=== PATIENT | female | born 1970 | race Caucasian/White ===

== ENCOUNTER → 2019-11-28 16:00 | Outpatient (BNVA) | payer MEDICARE, MEDICAID, SELFPAY | PROVIDERS: Family Provider Nurse Practitioner Family; PCP Nurse Practitioner Family; Visit Provider Nurse Practitioner Family | DX: G40.909 Epilepsy, unspecified, not intractable, without status epilepticus (principal); Z13.6 Encounter for screening for cardiovascular disorders; E03.9 Hypothyroidism, unspecified; L21.9 Seborrheic dermatitis, unspecified; F41.9 Anxiety disorder, unspecified; F32.9 Major depressive disorder, single episode, unspecified; M25.561 Pain in right knee; M25.562 Pain in left knee | CPT/HCPCS: 80053; 80061; 80185; 84443; 85025 ==

== ENCOUNTER 2019-12-30 00:02 | Emergency (ER) | payer MEDICARE, MEDICAID, SELFPAY ==
[2019-12-30 00:10] VITALS: BP 148/77; PULSE 83; RESP 16; TEMP 36.7; O2SAT 96; BMI 23.3
--- NOTE | 2019-12-30 00:39 | ED_ITS ---
HPI - Wound/Laceration General: Chief Complaint: Wound/Laceration Stated Complaint: finger lac Time Seen by Provider: 12/30/19 00:39 History of Present Illness: HPI narrative: Patient is a 49-year-old female comes to the ED with a laceration on left index finger. Injury occurred just prior to arrival. Patient was cutting some dog treats with a knife and it slipped and cut her right index finger. While at home they applied pressure on laceration with paper towels to get it to stop bleeding. Patient says she is on sure of her last tetanus shot. Associated symptoms: Denies chills, fever(s), nausea or vomiting Review of Systems Const: Denies: fever(s), chills or fatigue Eyes: Denies: change in vision or eye discomfort ENMT: Denies: throat pain, odynophagia, nasal discharge or nasal congestion Card: Denies: chest pain, palpitations, edema, swelling of feet/ankles, dyspnea on exertion or orthopnea Resp: Denies: dyspnea, productive cough or non-productive cough GI: Denies: abdominal pain, nausea, vomiting, diarrhea, constipation or hematochezia : Denies: flank pain, dysuria or hematuria Musc: Denies: neck pain, back pain or extremity swelling Skin/Breast: Reports: new lesions (laceration to left index finger); Denies: rash Neuro: Denies: headache(s), numbness in extremities or weakness in extremities [facility] ED PFSH: Medical History Anxiety and depression Graves disease Hypothyroidism, unspecified Seizure disorder Family History Mother Cancer COLON CANCER Social History Smoking and tobacco status: former smoker Alcohol intake: former Lives independently: Yes Household members: significant other Housing: House Current occupational status: disabled Female Reproductive History: Date of last menstrual period: 12/27/19 Physical Exam Const: COMMON NORMALS: no acute distress, patient oriented x3 and alert GENERAL APPEARANCE: cooperative and comfortable HENMT: COMMON NORMALS: normocephalic HEAD & SCALP: normocephalic MOUTH: Normal oral and palatal mucosa present THROAT: posterior oropharynx normal and uvula midline Eye: COMMON NORMALS: Equal, round and reactive pupils present PUPIL: Yes Equal, round and reactive pupils present Neck/C-Spine: COMMON NORMALS: supple GENERAL: Yes normal visual inspection Resp: COMMON NORMALS: normal respiratory effort, No retractions, No use of accessory muscles and clear to auscultation bilaterally AUSCULTATION: clear to auscultation bilaterally Cardio: COMMON NORMALS: regular rate, regular rhythm, S1 normal heart sound present, S2 normal heart sound present, No gallops present (Cardio), No clicks present (Cardio), No murmurs present (Cardio) and Peripheral pulses 2+ throughout RATE: regular rate RHYTHM: regular rhythm HEART SOUNDS: S1 normal heart sound present and S2 normal heart sound present PERIPHERAL PULSES: Peripheral pulses 2+ throughout GI: COMMON NORMALS: Normal to inspection, nondistended, normoactive bowel sounds present, Soft to palpation, non-tender and no masses PALPATION: Yes Soft to palpation : COMMON NORMALS: Yes no CVA tenderness BLADDER/KIDNEY EXAM: Yes no CVA tenderness Back/Pelvis: COMMON NORMALS: no CVA tenderness Extremity: GENERAL: Yes normal exam except as noted LEFT UPPER EXTREMITY: Yes hand & digits Left hand and digits: Yes inspection (0.5cm superficial laceration to index finger dorsal side. No nail damage seen.), Yes ROM (full) and Yes neurovascular exam (Intact.) Neuro: COMMON NORMALS: patient oriented x3 and moves all extremities SENSORIUM/ORIENTATION: Yes alert Skin: TRAUMA: laceration (0.5 cm superficial linear laceration to left index finger-dorsal side.) linear, superficial, motor nerve function intact and sensation intact; not actively bleeding, no pulsatile bleeding and not contaminated Procedures Laceration Laceration 1: Site: hand Side (If applicable): left Size (cm): 0.5 Description: linear and clean Depth: simple, single layer Pre-repair: irrigated extensively (With normal saline and then cleaned with alcohol swab.) Skin layer closed with: other (Dermabond) Size (cm): other (dermabond) Technique: other (Dermabond) Course Vital Signs: Vital signs: Vital Signs Temperature 98.1 F 12/30/19 00:10 Pulse Rate 83 12/30/19 00:10 Respiratory Rate 16 12/30/19 00:10 Blood Pressure 148/77 12/30/19 00:10 Pulse Oximetry 96 12/30/19 00:10 MDM - Wound/Laceration MDM Narrative: Medical decision making narrative: Patient is a 49-year-old female comes to the ED with a laceration to her left index finger. Laceration was irrigated with normal saline and cleaned with alcohol swab. Laceration was then closed using Dermabond and then a bandage was applied by the nurse. Patient was given a dose of cephalexin and tetanus shot. She was told to keep wound clean and dry for the next 24 hours and then after that she can clean and re-bandage daily. Patient was given a prescription for cephalexin as prophylactic treatment. She was told to watch for signs of infection such as redness, warmth or puslike drainage. She was told to follow-up with PCP in 7 to 10 days for reevaluation. Patient understood and agreed with plan. Discharge Plan Discharge Patient Disposition: Home, Self-Care Clinical Impression: Laceration Condition: Stable Prescriptions: New cephalexin 500 mg capsule 500 mg PO QID 3 Days Qty: 12 RF: 0 No Action Women's 50 Plus Multivitamin 400 mcg-500 mg calcium-20 mcg tablet PO RF: 0 ketoconazole 2 % shampoo 1 applic TOPICAL ONCE Qty: 120 RF: 1 paroxetine HCl [Paxil] 30 mg tablet 30 mg PO QAM Qty: 90 RF: 1 phenytoin sodium extended 100 mg capsule 200 mg PO BID 30 Days Qty: 120 RF: 1 meloxicam 15 mg tablet 15 mg PO DAILY Qty: 30 RF: 2 Discharge Orders: Discharge Order (Routine); Ordered 12/30/19 Ordered By: Robert Johnson Referrals: Emiliana Ruano FNP [Primary Care Provider] - Discharge Diet: Regular Discharge Activity: Resume usual activity Patient Instructions: Laceration (ED), Skin Adhesive Care (ED) Activity Restrictions/Additional Instructions: Take full course of antibiotics as prescribed. Leave laceration dry for the next 24 hours. After that you can clean and re-bandage laceration daily. You received a tetanus shot today so you are good for another 8 to 10 years. Follow-up with your primary care doctor in 7 to 10 days for reevaluation. Watch for signs of infection such as redness, warmth or puslike drainage from finger. If you see these possible signs of infection return to the ED for reevaluation. Coding Level of Care Code ED [employer] Repairer for Chg Fwd Exam Comprehensive
[2019-12-30] MEDS: tetanus-dipt-pertussis 0.5 mL SDV IM (01:00)
[2019-12-30] MEDS: cephALEXin 500 mg Capsule PO (01:00)
[2019-12-30 01:26] VITALS: BP 112/85; PULSE 71; RESP 16; O2SAT 95
== END 2019-12-30 01:36 | disposition home or self-care (01) ==
PROVIDERS: Emergency Provider Physician Assistant; PCP Nurse Practitioner Family
DX: S61.211A Laceration without foreign body of left index finger without damage to nail, initial encounter (principal); W26.0XXA Contact with knife, initial encounter; Z87.891 Personal history of nicotine dependence; Z23 Encounter for immunization
CPT/HCPCS: 12001; 12345; 90471; 90715; 99281; 99283

== ENCOUNTER → 2020-04-03 11:34 | Outpatient (BNVA) | payer MEDICARE, MEDICAID, SELFPAY | PROVIDERS: PCP Nurse Practitioner Family; Visit Provider Nurse Practitioner Family | DX: G40.909 Epilepsy, unspecified, not intractable, without status epilepticus (principal); F32.9 Major depressive disorder, single episode, unspecified; F41.9 Anxiety disorder, unspecified; E03.9 Hypothyroidism, unspecified; L21.9 Seborrheic dermatitis, unspecified; N63.0 Unspecified lump in unspecified breast | CPT/HCPCS: 80053; 80185; 84443; 85025 ==

== ENCOUNTER 2020-04-09 11:33 | Outpatient (CLI) | payer MEDICARE, MEDICAID, SELFPAY ==
--- NOTE | 2020-04-09 12:00 | MM_ITS ---
WS: [id number] RIGHT DIAGNOSTIC MAMMOGRAM WITH MAXINE DISPLACEMENT VIEWS. CAD PERFORMED. HISTORY: breast lump; right breast COMPARISON: 07/09/2019, 07/07/2018 RIGHT craniocaudal and mediolateral like views are performed. Spot compression RIGHT CC and mediolate ral. Maxine displacement views in CC and MLO projection also performed. Breast composition: The breasts are heterogeneously dense, which may obscure small masses. Breast im plants are retropectoral and intact. Small amount of calcium adjacent to the RIGHT breast implant. Pa lpable marker is placed inferior to the nipple. No underlying mass identified. No nipple retraction. RIGHT breast ultrasound, limited. Ultrasound is directed to the palpable area 6:00. There is normal underlying fibroglandular breast ti ssue. No soft tissue thickening. No mass. MM/[place] [id number] IMPRESSION: BI-RADS: 2-Benign FOLLOW-UP: See Report Return to annual screening. Screening mammogram should be performed in June 2020.
--- NOTE | 2020-04-09 12:45 | US_ITS ---
WS: [id number] RIGHT DIAGNOSTIC MAMMOGRAM WITH MAXINE DISPLACEMENT VIEWS. CAD PERFORMED. HISTORY: breast lump; right breast COMPARISON: 07/09/2019, 07/07/2018 RIGHT craniocaudal and mediolateral like views are performed. Spot compression RIGHT CC and mediolate ral. Maxine displacement views in CC and MLO projection also performed. Breast composition: The breasts are heterogeneously dense, which may obscure small masses. Breast im plants are retropectoral and intact. Small amount of calcium adjacent to the RIGHT breast implant. Pa lpable marker is placed inferior to the nipple. No underlying mass identified. No nipple retraction. RIGHT breast ultrasound, limited. Ultrasound is directed to the palpable area 6:00. There is normal underlying fibroglandular breast ti ssue. No soft tissue thickening. No mass. US/US breast RT limited* [id number] IMPRESSION: BI-RADS: 2-Benign FOLLOW-UP: See Report Return to annual screening. Screening mammogram should be performed in June 2020.
== END 2020-04-09 11:34 | disposition home or self-care (01) ==
LOC: RADSHAW 11:50
PROVIDERS: PCP Nurse Practitioner Family; Visit Provider Nurse Practitioner Family
DX: N63.15 Unspecified lump in the right breast, overlapping quadrants (principal)
CPT/HCPCS: 76642; 77065

== ENCOUNTER → 2020-04-23 11:30 | Outpatient (BNVA) | payer MEDICARE, MEDICAID, SELFPAY | PROVIDERS: PCP Nurse Practitioner Family; Visit Provider Nurse Practitioner Family | DX: G40.909 Epilepsy, unspecified, not intractable, without status epilepticus (principal) | CPT/HCPCS: 80185 ==

== ENCOUNTER 2020-07-10 09:41 | Outpatient (CLI) | payer MEDICARE, MEDICAID, SELFPAY ==
--- NOTE | 2020-07-10 10:30 | MM_ITS ---
WS: [id number] Bilateral screening digital mammogram, 07/10/2020 Clinical Data: screening mammo; due in june Comparison: 04/09/2020, 07/09/2019, 07/07/2018, 05/06/2016, 12/04/2014, 12/03/2013, 09/12/2012, 2, 02/05/2011. Findings: The breast parenchymal pattern shows heterogeneous density. No spiculated masses or clustered calcifi cations are seen. There are no secondary signs of carcinoma. The augmentation mammoplasty implants ar e intact. MM/[place] [id number] Impression: 1. Negative bilateral mammograms with intact augmentation mammogram last impla nts unchanged 2. Recommend annual screening mammograms. BIRADS: 2-Benign FOLLOW UP: 1 Year Follow-up The CAD swatch checker was used.
== END 2020-07-10 09:42 | disposition home or self-care (01) ==
LOC: RADSHAW 09:45
PROVIDERS: PCP Nurse Practitioner Family; Visit Provider Nurse Practitioner Family
DX: Z12.31 Encounter for screening mammogram for malignant neoplasm of breast (principal)
CPT/HCPCS: 77067

== ENCOUNTER → 2020-09-30 15:15 | Outpatient (BNVA) | payer MEDICARE, MEDICAID, SELFPAY | PROVIDERS: PCP Nurse Practitioner Family; Visit Provider Nurse Practitioner Family | DX: G40.909 Epilepsy, unspecified, not intractable, without status epilepticus (principal); E03.9 Hypothyroidism, unspecified; Z13.6 Encounter for screening for cardiovascular disorders; M54.30 Sciatica, unspecified side | CPT/HCPCS: 80053; 80061; 80185; 84443; 85025 ==

== ENCOUNTER → 2020-10-14 14:38 | Outpatient (BNVA) | payer MEDICARE, MEDICAID, SELFPAY | PROVIDERS: PCP Nurse Practitioner Family; Visit Provider Family Medicine | DX: M54.31 Sciatica, right side (principal) | CPT/HCPCS: 72100; 73502 ==

== ENCOUNTER → 2020-11-10 09:48 | Outpatient (BNVA) | payer MEDICARE, MEDICAID, SELFPAY | PROVIDERS: PCP Nurse Practitioner Family; Referring Provider Nurse Practitioner Family; Visit Provider Specialist | DX: M25.552 Pain in left hip (principal) | CPT/HCPCS: 73502 ==

== ENCOUNTER → 2021-02-13 15:20 | Outpatient (BNVA) | payer MEDICARE, MEDICAID, SELFPAY | PROVIDERS: PCP Nurse Practitioner Family; Visit Provider Internal Medicine | DX: Z11.52 Encounter for screening for COVID-19 (principal); Z20.822 Contact with and (suspected) exposure to COVID-19 | CPT/HCPCS: 87635 ==

== ENCOUNTER 2021-02-20 07:45 | Day surgery (SDC) | payer MEDICARE, MEDICAID, SELFPAY ==
[2021-02-17 09:25] VITALS: BMI 22.3
[2021-02-20 08:08] VITALS: BP 123/78; PULSE 101; RESP 18; TEMP 36.7; O2SAT 98
[2021-02-20] MEDS: sodium chloride 0.9% 1,000 ML 30 ML IV (08:20)
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
[2021-02-20 08:22] LABS: OR HCG Qualitative Urine Negative (Negative)
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
[2021-02-20 09:26] VITALS: BP 104/72; PULSE 84; RESP 16; TEMP 36.1; O2SAT 99
[2021-02-20 09:46] VITALS: BP 133/83; PULSE 68; RESP 18; O2SAT 100
--- NOTE | 2021-02-20 11:40 | ANE.PACU2 ---
Inpatient post-anesthesia follow up: Airway intact: Yes Vital signs: Temperature 97 F Pulse Rate 68 Respiratory Rate 18 Blood Pressure 133/83 Pulse Oximetry 100 Oxygen Delivery Me thod Room Air Oxygen Flow Rate Fraction of Inspir ed Oxygen Hydration adequate: Yes Nausea and vomiting: No Pain level: 1 Mental status: Baseline
== END 2021-02-20 09:57 | disposition home or self-care (01) ==
PROVIDERS: Anesthesiology; PCP Nurse Practitioner Family; Visit Provider Internal Medicine
PROC: 0DJD8ZZ Inspection of Lower Intestinal Tract, Via Natural or Artificial Opening Endoscopic (ICD-10-PCS; CPT 45330; principal; 2021-02-20 09:00)
DX: Z12.11 Encounter for screening for malignant neoplasm of colon (principal); Z80.0 Family history of malignant neoplasm of digestive organs; E03.9 Hypothyroidism, unspecified; Z87.891 Personal history of nicotine dependence; Z91.19 Patient's noncompliance with other medical treatment and regimen
CPT/HCPCS: 45330; 81025; 84703; 96360; J2405; J2704; J7030

== ENCOUNTER → 2021-03-04 10:55 | Outpatient (BNVA) | payer MEDICARE, MEDICAID, SELFPAY | PROVIDERS: PCP Nurse Practitioner Family; Visit Provider Internal Medicine | DX: Z11.52 Encounter for screening for COVID-19 (principal) | CPT/HCPCS: 87635 ==

== ENCOUNTER 2021-03-09 08:51 | Day surgery (SDC) | payer MEDICARE, MEDICAID, SELFPAY ==
[2021-03-06 13:17] VITALS: BMI 23.0
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
[2021-03-09 09:43] VITALS: BP 139/86; PULSE 86; RESP 16; TEMP 36.6; O2SAT 99
[2021-03-09] MEDS: sodium chloride 0.9% 1,000 ML 30 ML IV (10:00)
[2021-03-09 11:28] VITALS: BP 111/77; PULSE 85; RESP 16; TEMP 36.6; O2SAT 98
[2021-03-09 11:42] VITALS: BP 129/83; PULSE 81; RESP 16; O2SAT 100
[2021-03-09] MEDS: ondansetron 2 mg/ML SDV 2 mL 4 MG IVP (11:53)
--- NOTE | 2021-03-09 15:10 | ANE.PACU2 ---
Inpatient post-anesthesia follow up: Airway intact: Yes Vital signs: Temperature 97.8 F Pulse Rate 81 Respiratory Rate 16 Blood Pressure 129/83 Pulse Oximetry 100 Oxygen Delivery Me thod Room Air Oxygen Flow Rate Fraction of Inspir ed Oxygen Hydration adequate: Yes Nausea and vomiting: No Pain level: 1 Mental status: Baseline
== END 2021-03-09 12:17 | disposition home or self-care (01) ==
PROVIDERS: PCP Nurse Practitioner Family; Visit Provider Internal Medicine
PROC: 0DJD8ZZ Inspection of Lower Intestinal Tract, Via Natural or Artificial Opening Endoscopic (ICD-10-PCS; CPT 45378; principal; 2021-03-09 10:30)
DX: Z12.11 Encounter for screening for malignant neoplasm of colon (principal); F41.9 Anxiety disorder, unspecified; F32.9 Major depressive disorder, single episode, unspecified; Z80.0 Family history of malignant neoplasm of digestive organs; Z87.891 Personal history of nicotine dependence
CPT/HCPCS: 96361; 96374; G0121; J2405; J7030

== ENCOUNTER → 2021-03-09 09:45 | Day surgery (SDC) | payer MEDICARE, MEDICAID, SELFPAY | PROVIDERS: PCP Nurse Practitioner Family; Visit Provider Internal Medicine | DX: Z01.818 Encounter for other preprocedural examination (principal) | CPT/HCPCS: J2704 ==

== ENCOUNTER → 2021-04-07 12:00 | Outpatient (BNVA) | payer MEDICARE, MEDICAID, SELFPAY | PROVIDERS: PCP Nurse Practitioner Family; Visit Provider Nurse Practitioner Family | DX: K59.00 Constipation, unspecified (principal) | CPT/HCPCS: 80053; 85025 ==

== ENCOUNTER → 2021-06-09 11:44 | Outpatient (BNVA) | payer MEDICARE, MEDICAID, SELFPAY | PROVIDERS: PCP Nurse Practitioner Family; Visit Provider Nurse Practitioner Family | DX: Z13.6 Encounter for screening for cardiovascular disorders (principal); E03.9 Hypothyroidism, unspecified; G40.909 Epilepsy, unspecified, not intractable, without status epilepticus | CPT/HCPCS: 80053; 80061; 80185; 84443; 85025 ==

== ENCOUNTER → 2021-11-20 15:00 | Outpatient (BNVA) | payer MEDICARE, MEDICAID, SELFPAY | PROVIDERS: PCP Nurse Practitioner Family; Visit Provider Nurse Practitioner Family | DX: G40.909 Epilepsy, unspecified, not intractable, without status epilepticus (principal); E03.9 Hypothyroidism, unspecified; Z13.6 Encounter for screening for cardiovascular disorders | CPT/HCPCS: 80053; 80061; 80185; 84439; 84443; 85025 ==

== ENCOUNTER → 2022-03-18 14:00 | Outpatient (BNVA) | payer MEDICARE, MEDICAID, SELFPAY | PROVIDERS: PCP Nurse Practitioner Family; Visit Provider Nurse Practitioner Family | DX: M25.551 Pain in right hip (principal); F41.9 Anxiety disorder, unspecified; F32.9 Major depressive disorder, single episode, unspecified; G40.909 Epilepsy, unspecified, not intractable, without status epilepticus; K59.00 Constipation, unspecified; K21.9 Gastro-esophageal reflux disease without esophagitis; Z13.6 Encounter for screening for cardiovascular disorders; E03.9 Hypothyroidism, unspecified | CPT/HCPCS: 80053; 80061; 80185; 84439; 84443; 85025 ==

== ENCOUNTER 2022-04-21 20:10 | Emergency (ER) | payer MEDICARE, MEDICAID, SELFPAY ==
[2022-04-21 20:13] VITALS: BMI 24.7
[2022-04-21 20:17] VITALS: BP 128/87; PULSE 99; RESP 16; TEMP 36.5; O2SAT 97
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
[2022-04-22] MEDS: lactated ringers 1,000 ML 999 ML IV (00:17)
[2022-04-22] MEDS: haloperidol inj 5 mg/mL INJ 1 mL IVP (00:18)
[2022-04-22 00:22] LABS: Basophils % 0.2 %; Eosinophils % 0.2 %; Hematocrit 43.6 % (37.0-47.0); Hemoglobin 14.4 g/dL (11.5-15.3); Lymphocytes # 0.2 10^3/uL (0.8-4.8); Lymphocytes % 4.3 %; Mean Corpuscular Hemoglobin 31.8 pg (28.0-34.0); Mean Corpuscular Volume 96.2 fl (81-99); Mean Platelet Volume 9.9 fL (7.4-10.4); Monocytes # 0.3 10^3/uL (0.2-0.9); Neutrophils # 4.05 10^3/uL (1.8-7.7); Neutrophils % 88.1 %; Nucleated Red Blood Cells % 0 %; Platelet Count 224 10^3/cmm (130-400); Positive C 1; Red Blood Count 4.53 10^6/uL (4.1-5.3); White Blood Count 4.6 10^3/uL (4.0-10.0)
[2022-04-22 00:45] LABS: Alanine Aminotransferase 39 U/L (0-33); Albumin Level 4.3 g/dL (3.5-5.2); Alkaline Phosphatase 145 U/L (35-105); Blood Urea Nitrogen 13 mg/dL (6-20); Calcium 9.2 mg/dL (8.5-10.5); Carbon Dioxide 27 mmol/L (22-29); Chloride 103 mmol/L (98-107); Globulin 2.7 g/dL (1.3-4.6); Glomerular Filtration Rate 129.1 mL/min (90-130); Glucose 117 mg/dL (65-115); Lipase 10 U/L (13-60); Osmolality Calculated 293 mOsm/kg (285-295); Sodium 141 mmol/L (136-145); Total Bilirubin 0.2 mg/dL (0.15-1.2)
[2022-04-22 00:47] LABS: Anion Gap 14.5 (5-19); Aspartate Amino Transferase 37 U/L (0-32); Potassium 3.5 mmol/L (3.5-5.1)
[2022-04-22 00:58] LABS: Slide Review Slide Review Perform
[2022-04-22 01:50] VITALS: BP 126/82; PULSE 93; RESP 17; O2SAT 92
== END 2022-04-22 01:18 | disposition home or self-care (01) ==
PROVIDERS: Emergency Provider Nurse Practitioner Family; PCP Nurse Practitioner Family
DX: R11.2 Nausea with vomiting, unspecified (principal); Z87.891 Personal history of nicotine dependence
CPT/HCPCS: 80053; 83690; 85025; 96361; 96374; 99284; J1630

== ENCOUNTER 2022-05-13 06:54 | Outpatient (CLI) | payer MEDICARE, MEDICAID, SELFPAY ==
--- NOTE | 2022-05-13 07:00 | CT_ITS ---
WS: [id number] CT LUMBAR SPINE TECHNIQUE: Noncontrast CT of the lumbar spine with coronal and sagittal reformatted images. CLINICAL INFORMATION: M54.50 - Low back pain, unspecified COMPARISON: Radiograph October 14, 2020. DLP: 2387.[address] scans at [facility] use at least one of these dose optimization techniques: automated e xposure control; mA and/or kV adjustment per patient size (includes targeted exams where dose is matc hed to clinical indication); or iterative reconstruction. FINDINGS: Mild lumbar curve. No acute compression. Disc bulging worse at L3-L5. No acute compression fractures. Prior postoperative changes screw fixation both ilium. L1-L2: Normal. L2-L3: Mild annular bulging. Narrowing of the LEFT subarticular recess. Moderate facet arthropathy. M ild LEFT foraminal narrowing. L3-L4: Mild annular bulging. Mild central canal stenosis. Advanced facet arthropathy worse on the LEF T. Mild to moderate LEFT foraminal narrowing. RIGHT foramen is patent. L4-L5: Mild disc bulging with moderate central canal stenosis. Advanced facet arthropathy with ligame ntum flavum hypertrophy. Mild to moderate LEFT foraminal narrowing. RIGHT foramen is patent. L5-S1: Mild disc bulging with slight effacement of ventral thecal sac. Mild to moderate LEFT L5-S1 fo raminal narrowing. RIGHT foramen is patent. Visualized pelvic bony structures: Normal. Paravertebral soft tissues: Normal. Cholecystectomy clips. Adrenal glands are normal. CT/CT lumbar spine wo con* [id number] IMPRESSION: 1. Mild lumbar curve. No acute compression. 2. Moderate central canal stenosis L4-L5 due to disc bulging with facet arthro marily and ligamentum flavum hypertrophy. Mild central canal stenosis L3-L4. 3. Mild to moderate LEFT L3-L4, LEFT L4-L5 and LEFT L5-S1 foraminal narrowing. 4. Advanced facet arthropathy L3-L4 L4-L5 and L5-S1.
--- NOTE | 2022-05-13 07:30 | CT_ITS ---
WS: [id number] CT LEFT HIP, NONCONTRAST. HISTORY: M25.552 - Pain in left hip Technique: All CT scans at [facility] use at least one of these dose optimization techniques: automated exposure control; mA and/or kV adjustment per patient size (includes targeted exams where dose is matched to clinical indication); or iterative reconstruction. DLP: 2387.70 mGy.cm COMPARISON: Radiographs 11/10/2020 Very minimal narrowing of the hip joint with mild osteophytic acetabular ridging. Small subchondral c yst along the lateral femoral head and neck junction. No fractures or dislocation. No loose body in t he joint space. No soft tissue or muscle atrophy. Acetabular orthopedic plate fixation. Visualized soft tissues of the pelvis are negative. No mass identified on this limited visualization. Remote healed fracture LEFT inferior pubic rami. CT/CT hip LT wo con* [id number] IMPRESSION: 1. Very mild degenerative joint space narrowing of the LEFT hip. No fractures or significant degenerative disease. 2. Prior plate fixation LEFT acetabulum. 3. Remote fracture with healing LEFT inferior pubic rami.
== END 2022-05-13 06:55 | disposition home or self-care (01) ==
LOC: RAD 06:54
PROVIDERS: PCP Nurse Practitioner Family; Visit Provider Nurse Practitioner Family
DX: M25.552 Pain in left hip (principal); S32.502D Unspecified fracture of left pubis, subsequent encounter for fracture with routine healing; X58.XXXD Exposure to other specified factors, subsequent encounter; M48.061 Spinal stenosis, lumbar region without neurogenic claudication; M47.816 Spondylosis without myelopathy or radiculopathy, lumbar region; M47.817 Spondylosis without myelopathy or radiculopathy, lumbosacral region
CPT/HCPCS: 72131; 73700

== ENCOUNTER → 2022-06-29 09:54 | Outpatient (BNVA) | payer MEDICARE, MEDICAID, SELFPAY | PROVIDERS: PCP Nurse Practitioner Family; Referring Provider Nurse Practitioner Family; Visit Provider Anesthesiology Pain Medicine | DX: M47.816 Spondylosis without myelopathy or radiculopathy, lumbar region (principal); M51.16 Intervertebral disc disorders with radiculopathy, lumbar region; M79.604 Pain in right leg; M79.605 Pain in left leg | CPT/HCPCS: 99204 ==

== ENCOUNTER → 2022-09-08 14:19 | Outpatient (BNVA) | payer MEDICARE, MEDICAID, SELFPAY | PROVIDERS: PCP Nurse Practitioner Family; Visit Provider Anesthesiology Pain Medicine | DX: M54.16 Radiculopathy, lumbar region (principal) | CPT/HCPCS: 62323; J1040; J3490 ==

== ENCOUNTER → 2022-09-23 10:29 | Outpatient (BNVA) | payer MEDICARE, MEDICAID, SELFPAY | PROVIDERS: PCP Nurse Practitioner Family; Visit Provider Anesthesiology Pain Medicine | DX: M47.816 Spondylosis without myelopathy or radiculopathy, lumbar region (principal); M51.16 Intervertebral disc disorders with radiculopathy, lumbar region | CPT/HCPCS: 99214 ==

== ENCOUNTER → 2022-10-06 10:49 | Outpatient (BNVA) | payer MEDICARE, MEDICAID, SELFPAY | PROVIDERS: PCP Nurse Practitioner Family; Visit Provider Nurse Practitioner Family | DX: E03.9 Hypothyroidism, unspecified (principal); F32.9 Major depressive disorder, single episode, unspecified; F41.9 Anxiety disorder, unspecified; G40.909 Epilepsy, unspecified, not intractable, without status epilepticus; Z13.6 Encounter for screening for cardiovascular disorders; K21.9 Gastro-esophageal reflux disease without esophagitis; L21.9 Seborrheic dermatitis, unspecified; E78.5 Hyperlipidemia, unspecified; K59.00 Constipation, unspecified | CPT/HCPCS: 80053; 80061; 84443; 85025 ==

== ENCOUNTER 2022-11-01 15:30 | Emergency (ER) | payer MEDICARE, MEDICAID, SELFPAY ==
[2022-11-01 15:30] VITALS: BP 107/79; PULSE 87; RESP 17; TEMP 36.9; O2SAT 93
[2022-11-01 15:48] VITALS: BP 116/76; PULSE 78; RESP 16; TEMP 36.5; O2SAT 98
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
--- NOTE | 2022-11-01 15:58 | XR_ITS ---
WS: [id number] EXAMINATION: XR wrist LT min 3V* [id number] REASON FOR EXAM: Fall injury with wrist pain COMPARISON: None available. ORDER DATE: 11/01/2022 4:03 PM FINDINGS: There is a subtle distortion in the trabecular pattern in the distal radial metaphysis which is sugge stive of an impacted fracture. There is some soft tissue swelling along the ulnar aspect of the arm o f uncertain significance possibly hematoma from the similar injury. XR/XR wrist LT min 3V* [id number] IMPRESSION: A follow-up study in 3-4 days may allow for further assessment of this very sub tle, probable impacted fracture.
[2022-11-01] MEDS: HYDROcodone-acetaminophen 7.5-325 mg Tablet 1 TAB PO (16:13)
[2022-11-01 17:25] VITALS: PULSE 84; RESP 18; O2SAT 98
--- NOTE | 2022-11-02 08:39 | DCPLANNER ---
Addendum entered by Lisy Wilkes 11/04/22 07:56: Patient had a follow up appointment scheduled with ortho - patient did attend appointment Addendum entered by Lisy Wilkes 11/02/22 10:24: Patient has a follow up appointment scheduled for Tuesday, November 03, 2022 at 2:[address] Youssef at ortho. Original Note: client solutions manager had message to schedule a follow up appointment for patient with ortho. client solutions manager sent patients information to the front office staff at ortho. Patients information will be printed and reviewed. Clinic will call patient with appointment information.
== END 2022-11-01 17:27 | disposition home or self-care (01) ==
PROVIDERS: Emergency Provider Physician Assistant; PCP Nurse Practitioner Family
DX: S62.102A Fracture of unspecified carpal bone, left wrist, initial encounter for closed fracture (principal); W01.0XXA Fall on same level from slipping, tripping and stumbling without subsequent striking against object, initial encounter; Y93.E5 Activity, floor mopping and cleaning
CPT/HCPCS: 29125; 73110; 99283

== ENCOUNTER 2022-11-03 16:16 | Outpatient (CLI) | payer MEDICARE, MEDICAID, SELFPAY | END 2022-11-03 16:17 | disposition home or self-care (01) | LOC: SPT 16:16 | PROVIDERS: PCP Nurse Practitioner Family; Visit Provider Specialist | DX: Z46.89 Encounter for fitting and adjustment of other specified devices (principal); S52.502A Unspecified fracture of the lower end of left radius, initial encounter for closed fracture; W22.8XXA Striking against or struck by other objects, initial encounter | CPT/HCPCS: 25600; 97760; 99213; L3982 ==

== ENCOUNTER → 2022-11-17 08:17 | Outpatient (BNVA) | payer MEDICARE, MEDICAID, SELFPAY | PROVIDERS: PCP Nurse Practitioner Family; Visit Provider Nurse Practitioner Family | DX: S52.502A Unspecified fracture of the lower end of left radius, initial encounter for closed fracture (principal); W22.8XXA Striking against or struck by other objects, initial encounter | CPT/HCPCS: 73110; 99213 ==

== ENCOUNTER → 2022-12-14 09:20 | Outpatient (BNVA) | payer MEDICARE, MEDICAID, SELFPAY | PROVIDERS: PCP Nurse Practitioner Family; Visit Provider Nurse Practitioner Family | DX: S52.502A Unspecified fracture of the lower end of left radius, initial encounter for closed fracture (principal); W01.0XXA Fall on same level from slipping, tripping and stumbling without subsequent striking against object, initial encounter | CPT/HCPCS: 73110; 99213 ==

== ENCOUNTER → 2023-01-13 12:53 | Outpatient (BNVA) | payer MEDICARE, MEDICAID, SELFPAY | PROVIDERS: PCP Nurse Practitioner Family; Referring Provider Nurse Practitioner Family; Visit Provider Nurse Practitioner Family | DX: L81.4 Other melanin hyperpigmentation (principal); D22.5 Melanocytic nevi of trunk; Z71.89 Other specified counseling; L85.3 Xerosis cutis; L57.8 Other skin changes due to chronic exposure to nonionizing radiation; L40.0 Psoriasis vulgaris | CPT/HCPCS: 99204 ==

== ENCOUNTER → 2023-04-04 09:43 | Outpatient (BNVA) | payer MEDICARE, MEDICAID, SELFPAY | PROVIDERS: PCP Nurse Practitioner Family; Visit Provider Anesthesiology Pain Medicine | DX: M47.816 Spondylosis without myelopathy or radiculopathy, lumbar region; M51.16 Intervertebral disc disorders with radiculopathy, lumbar region; M25.551 Pain in right hip | CPT/HCPCS: 99214 ==

== ENCOUNTER → 2023-04-25 14:09 | Outpatient (BNVA) | payer MEDICARE, MEDICAID, SELFPAY | PROVIDERS: PCP Nurse Practitioner Family; Visit Provider Nurse Practitioner Family | DX: L40.0 Psoriasis vulgaris (principal); L81.4 Other melanin hyperpigmentation; D22.5 Melanocytic nevi of trunk; L85.3 Xerosis cutis; L57.8 Other skin changes due to chronic exposure to nonionizing radiation | CPT/HCPCS: 99214 ==

== ENCOUNTER → 2023-05-09 10:45 | Outpatient (BNVA) | payer MEDICARE, MEDICAID, SELFPAY | PROVIDERS: PCP Nurse Practitioner Family; Visit Provider Anesthesiology Pain Medicine | DX: M47.816 Spondylosis without myelopathy or radiculopathy, lumbar region; M51.16 Intervertebral disc disorders with radiculopathy, lumbar region; M47.817 Spondylosis without myelopathy or radiculopathy, lumbosacral region; M48.061 Spinal stenosis, lumbar region without neurogenic claudication | CPT/HCPCS: 99214 ==

== ENCOUNTER → 2023-07-28 12:35 | Outpatient (BNVA) | payer MEDICARE, MEDICAID, SELFPAY | PROVIDERS: PCP Nurse Practitioner Family; Visit Provider Nurse Practitioner Family | DX: K21.9 Gastro-esophageal reflux disease without esophagitis (principal); E03.9 Hypothyroidism, unspecified; G40.909 Epilepsy, unspecified, not intractable, without status epilepticus; E78.5 Hyperlipidemia, unspecified; N93.9 Abnormal uterine and vaginal bleeding, unspecified | CPT/HCPCS: 80053; 80061; 80185; 82607; 83001; 83735; 84443; 85025 ==

== ENCOUNTER → 2023-10-26 12:47 | Outpatient (BNVA) | payer MEDICARE, MEDICAID, SELFPAY | PROVIDERS: PCP Nurse Practitioner Family; Visit Provider Nurse Practitioner Family | DX: L66.1 Lichen planopilaris (principal); L21.8 Other seborrheic dermatitis; L40.0 Psoriasis vulgaris; D22.5 Melanocytic nevi of trunk; L81.4 Other melanin hyperpigmentation; L85.3 Xerosis cutis; L57.8 Other skin changes due to chronic exposure to nonionizing radiation | CPT/HCPCS: 99214 ==

== ENCOUNTER → 2023-11-21 08:35 | Outpatient (BNVA) | payer MEDICARE, MEDICAID, SELFPAY | PROVIDERS: PCP Nurse Practitioner Family; Visit Provider Anesthesiology Pain Medicine | DX: G89.29 Other chronic pain; M47.816 Spondylosis without myelopathy or radiculopathy, lumbar region; M51.16 Intervertebral disc disorders with radiculopathy, lumbar region; M48.061 Spinal stenosis, lumbar region without neurogenic claudication | CPT/HCPCS: 99214 ==

== ENCOUNTER → 2023-12-12 13:52 | Outpatient (BNVA) | payer MEDICARE, MEDICAID, SELFPAY | PROVIDERS: PCP Nurse Practitioner Family; Visit Provider Anesthesiology Pain Medicine | DX: M54.16 Radiculopathy, lumbar region (principal); G89.29 Other chronic pain | CPT/HCPCS: 62323; J1010 ==

== ENCOUNTER → 2024-01-02 08:55 | Outpatient (BNVA) | payer MEDICARE, MEDICAID, SELFPAY | PROVIDERS: PCP Nurse Practitioner Family; Visit Provider Anesthesiology Pain Medicine | DX: G89.29 Other chronic pain; M47.816 Spondylosis without myelopathy or radiculopathy, lumbar region; M51.16 Intervertebral disc disorders with radiculopathy, lumbar region; M25.551 Pain in right hip; M25.552 Pain in left hip | CPT/HCPCS: 99214 ==

== ENCOUNTER 2024-04-12 13:27 | Outpatient (CLI) | payer MEDICARE, MEDICAID, SELFPAY ==
--- NOTE | 2024-04-12 13:37 | XR_ITS ---
WS: [id number] Right foot, 3 views, 04/12/2024 Clinical Data: M79.671 - Pain in right foot Comparison: None. Findings: No fractures or dislocations are seen. No bone destruction or erosion is noted. The soft tissues are normal. The PIP and DIP joint spaces of the right second through fifth toes show osteoarthritis. XR/XR foot RT min 3V* [id number] Impression: Negative for right foot fracture.
== END 2024-04-12 13:28 | disposition home or self-care (01) ==
LOC: RAD 13:32
PROVIDERS: PCP Nurse Practitioner Family; Visit Provider Nurse Practitioner Family
DX: M19.071 Primary osteoarthritis, right ankle and foot (principal)
CPT/HCPCS: 73630

== ENCOUNTER → 2024-06-08 10:37 | Outpatient (BNVA) | payer MEDICARE, MEDICAID, SELFPAY | PROVIDERS: PCP Nurse Practitioner Family; Visit Provider Nurse Practitioner Family | DX: R31.9 Hematuria, unspecified (principal) | CPT/HCPCS: 74018; 81000 ==

== ENCOUNTER → 2024-07-02 11:36 | Outpatient (BNVA) | payer MEDICARE, MEDICAID, SELFPAY | PROVIDERS: PCP Nurse Practitioner Family; Visit Provider Nurse Practitioner Family | DX: L66.11 Classic lichen planopilaris (principal); L21.8 Other seborrheic dermatitis; L40.0 Psoriasis vulgaris; L29.89 Other pruritus; L81.4 Other melanin hyperpigmentation; L57.8 Other skin changes due to chronic exposure to nonionizing radiation | CPT/HCPCS: 99214 ==

== ENCOUNTER → 2024-10-08 14:04 | Outpatient (BNVA) | payer MEDICARE, MEDICAID, SELFPAY | PROVIDERS: PCP Nurse Practitioner Family; Visit Provider Nurse Practitioner Family | DX: L40.0 Psoriasis vulgaris (principal); L29.89 Other pruritus; L66.11 Classic lichen planopilaris; L21.8 Other seborrheic dermatitis; L81.4 Other melanin hyperpigmentation; L57.8 Other skin changes due to chronic exposure to nonionizing radiation | CPT/HCPCS: 99214 ==

== ENCOUNTER → 2024-11-28 11:34 | Outpatient (BNVA) | payer MEDICARE, MEDICAID, SELFPAY | PROVIDERS: PCP Nurse Practitioner Family; Visit Provider Nurse Practitioner Family | DX: R23.2 Flushing (principal); K59.00 Constipation, unspecified; E03.9 Hypothyroidism, unspecified | CPT/HCPCS: 80053; 80061; 82670; 83001; 84144; 84443; 85025 ==

== ENCOUNTER 2024-11-29 13:24 | Emergency (ER) | payer MEDICARE, MEDICAID, SELFPAY ==
[2024-11-29 13:36] VITALS: BMI 23.6
[2024-11-29 13:45] VITALS: BP 137/88; PULSE 68; RESP 14; TEMP 36.8; O2SAT 98
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
--- NOTE | 2024-11-29 13:53 | PC.PHAR ---
new medication changes, from lexapro to venlafaxine on 11/28/24
[2024-11-29 14:04] LABS: Amphetamines Screen Urine Negative (Negative); Barbiturates Screen Urine Positive (Negative); Benzodiazepines Screen Urine Negative (Negative); Cocaine Screen Urine Negative (Negative); Opiate Screen Urine Negative (Negative); PCP Screen Urine Negative (Negative); THC Screen Urine Negative (Negative)
[2024-11-29 14:05] LABS: Basophils # 0.1 10^3/uL (0.0-0.1); Basophils % 1.1 %; Eosinophils # 0.4 10^3/uL (0.0-0.8); Eosinophils % 5.4 %; Hematocrit 42.4 % (36-47); Lymphocytes # 2.2 10^3/uL (0.8-4.8); Lymphocytes % 33.3 %; Mean Corpuscular HGB Conc 33.3 g/dL (30-55); Mean Corpuscular Hemoglobin 31.6 pg (27-33); Mean Corpuscular Volume 95.1 fl (85-98); Mean Platelet Volume 8.9 fL (7.4-10.4); Monocytes # 0.6 10^3/uL (0.2-0.9); Monocytes % 9.4 %; Neutrophils # 3.27 10^3/uL (1.8-7.7); Neutrophils % 50.6 %; Nucleated Red Blood Cells % 0 %; Platelet Count 261 10^3/cmm (157-399); Red Blood Count 4.46 10^6/uL (3.85-5.65); Red Cell Distribution Width 12.3 % (12.1-15.1); White Blood Count 6.46 10^3/uL (3.29-11.43)
[2024-11-29 14:22] LABS: Alanine Aminotransferase 15 U/L (0-33); Albumin Level 4.4 g/dL (3.5-5.2); Alkaline Phosphatase 139 U/L (35-105); Anion Gap 16.7 (5-19); Aspartate Amino Transferase 18 U/L (0-32); Blood Urea Nitrogen 17 mg/dL (6-20); Calcium 9.2 mg/dL (8.5-10.5); Carbon Dioxide 25 mmol/L (22-29); Chloride 105 mmol/L (98-107); Creatinine Clr Calc Pharmacy 76.6441; Glomerular Filtration Rate 86.9 mL/min (90-130); Glucose 92 mg/dL (65-115); Osmolality Calculated 295 mOsm/kg (285-295); Potassium 4.7 mmol/L (3.5-5.1); Sodium 142 mmol/L (136-145); Total Bilirubin 0.2 mg/dL (0.15-1.2); Total Protein 7.4 g/dL (6.6-8.7)
[2024-11-29 14:24] LABS: Acetaminophen < 5.0 ug/mL (10-30); Alcohol Level < 10 mg/dL (0-10); Salicylate < 0.3 mg/dL (3-10)
[2024-11-29 15:28] VITALS: BP 120/77; PULSE 80; O2SAT 95
== END 2024-11-29 15:29 | disposition home or self-care (01) ==
PROVIDERS: Emergency Provider Physician Assistant; PCP Nurse Practitioner Family
DX: F32.A Depression, unspecified (principal); Z87.891 Personal history of nicotine dependence; E78.5 Hyperlipidemia, unspecified
CPT/HCPCS: 36415; 80053; 80306; 80307; 85025; 99283

== ENCOUNTER → 2025-04-24 11:25 | Outpatient (BNVA) | payer MEDICARE, MEDICAID, SELFPAY | PROVIDERS: PCP Nurse Practitioner Family; Visit Provider Obstetrics & Gynecology | DX: N95.1 Menopausal and female climacteric states (principal); E03.9 Hypothyroidism, unspecified; K59.00 Constipation, unspecified | CPT/HCPCS: 80053; 80061; 81000; 84443; 85025 ==

== ENCOUNTER → 2025-05-29 13:15 | Outpatient (BNVA) | payer MEDICARE, MEDICAID, SELFPAY | PROVIDERS: PCP Nurse Practitioner Family; Visit Provider Nurse Practitioner Family | DX: Z12.4 Encounter for screening for malignant neoplasm of cervix (principal) | CPT/HCPCS: 87624 ==

== ENCOUNTER 2025-06-03 10:49 | Outpatient (CLI) | payer MEDICARE, MEDICAID, SELFPAY ==
--- NOTE | 2025-06-03 10:59 | MM_ITS ---
WS: [id number] BILATERAL 3D TOMOSYNTHESIS DIGITAL SCREENING MAMMOGRAPHY WITH CAD CLINICAL INFORMATION: SCREENING HISTORY: Screening mammogram. No current complaints. COMPARISON: 2019 2018 TECHNIQUE: Bilateral CC and MLO views. FINDINGS: Stable bilateral breast implants with capsular calcifications. Stable lobulation upper outer LEFT breast implant The breasts are composed of heterogeneous fibroglandular density tissue, which can limit the detection of small underlying mass lesions. Slight nodularity subareolar LEFT breast appears new or progressed compared to previous. Recommend subareolar LEFT breast ultrasound. RIGHT breast is unchanged. MM/MM [facility] tomosynthesis [id number] IMPRESSION: DENSITY: The breasts are heterogeneously dense, which may obscure small masses. BI-RADS: 0 - Incomplete: Need additional imaging evaluation FOLLOW UP: Need Additional Imaging Recommend subareolar LEFT breast ultrasound
== END 2025-06-03 10:50 | disposition home or self-care (01) ==
LOC: RAD 10:51
PROVIDERS: PCP Nurse Practitioner Family; Visit Provider Nurse Practitioner Family
DX: Z12.31 Encounter for screening mammogram for malignant neoplasm of breast (principal); R92.323 Mammographic fibroglandular density, bilateral breasts; R92.333 Mammographic heterogeneous density, bilateral breasts; N63.42 Unspecified lump in left breast, subareolar
CPT/HCPCS: 77063; 77067

== ENCOUNTER → 2025-06-11 08:51 | Outpatient (BNVA) | payer MEDICARE, MEDICAID, SELFPAY | PROVIDERS: PCP Nurse Practitioner Family; Visit Provider Podiatrist Foot & Ankle Surgery | DX: L60.3 Nail dystrophy (principal) | CPT/HCPCS: 99203 ==

== ENCOUNTER 2025-06-27 10:52 | Outpatient (CLI) | payer MEDICARE, MEDICAID, SELFPAY ==
--- NOTE | 2025-06-27 10:57 | US_ITS ---
WS: [id number] ULTRASOUND BREAST LEFT TECHNIQUE: Ultrasound left breast focused area of concern. CLINICAL INFORMATION: R92.332 - Mammographic heterogeneous density, left breast COMPARISON: 06/03/2025 mammogram FINDINGS: Ultrasound subareolar LEFT breast. No suspicious subareolar abnormalities. No cystic or solid lesions. No lesions to target for biopsy. Recommend return to annual screening mammography. US/US breast LT limited* [id number] IMPRESSION: BI-RADS 2 benign Follow-up: 1 year Recommend return to annual screening mammography.
== END 2025-06-27 10:53 | disposition home or self-care (01) ==
LOC: RAD 10:53
PROVIDERS: PCP Nurse Practitioner Family; Visit Provider Nurse Practitioner Family
DX: R92.332 Mammographic heterogeneous density, left breast (principal)
CPT/HCPCS: 76642